=== PATIENT | female | born 1950 ===

== ENCOUNTER 2022-08-06 05:26 | Day surgery (SDC) | payer OTHER ==
[~2022-08-06] VITALS: Ht 152.4 cm; Wt 75.7 kg
[~2022-08-06 05:26] MED LIST: ATORVASTATIN CA20 MG PO
== END 2022-08-06 11:05 | disposition home or self-care (01) ==
LOC: CIR.AMB 05:26
PROVIDERS: ATTEND Orthopaedic Surgery
DX: M75.121 Complete rotator cuff tear or rupture of right shoulder, not specified as traumatic (principal); M24.111 Other articular cartilage disorders, right shoulder; Z20.822 Contact with and (suspected) exposure to COVID-19; I10 Essential (primary) hypertension; Z91.040 Latex allergy status